=== PATIENT | female | born 1960 | race Caucasian/White ===

== ENCOUNTER 2019-12-16 08:54 | Outpatient (CLI) | payer OTHER, SELFPAY ==
--- NOTE | ~2019-12-16 | US_ITS ---
EXAMINATION: US carotid duplex BI EXAM DATE: 12/16/2019 09:24 INDICATION: Dizziness. TECHNIQUE: Grayscale, color and pulsed Doppler images of the cervical carotid arteries were obtained . The degree of vessel stenosis is placed in one of the following categories: normal, <50% stenosis, 50-69% stenosis, >=70% stenosis but less than near-occlusion, near-occlusion, or occlusion. Note that percent stenosis relative to normal distal artery lumen diameter is indirectly measured from velocit y measurements as described by Roque, et al. Radiology 2003; 229:340-346. There is no prior study fo r comparison. FINDINGS: RIGHT SIDE: Right common carotid artery peak systolic velocity (PSV in cm/s): 87 Right bulb/internal carotid artery peak systolic velocity (PSV in cm/s): 115 Right internal carotid artery end diastolic velocity (EDV in cm/s): 27 Right ICA/CCA peak systolic ratio: 1.3 Right external carotid artery peak systolic velocity (PSV in cm/s): 83 Right vertebral artery antegrade flow: yes There is no focal plaque identified. LEFT SIDE: Left common carotid artery peak systolic velocity (PSV in cm/s): 82 Left bulb/internal carotid artery peak systolic velocity (PSV in cm/s): 68 Left internal carotid artery end diastolic velocity (EDV in cm/s): 32 Left ICA/CCA peak systolic ratio: 0.8 Left external carotid artery peak systolic velocity (PSV in cm/s): 64 Left vertebral artery antegrade flow: yes There is no focal plaque identified. IMPRESSION: 1. Normal right internal carotid artery. 2. Normal left internal carotid artery. > Reviewed, dictated and finalized at location B. H CARRIER
== END 2019-12-16 08:55 | disposition home or self-care (01) ==
LOC: CHSIMG 08:57
PROVIDERS: PCP Family Medicine; Visit Provider Family Medicine
DX: R42 Dizziness and giddiness (principal)
CPT/HCPCS: 93880

== ENCOUNTER 2019-12-16 09:20 | Outpatient (RCR) | payer OTHER, SELFPAY ==
--- NOTE | 2019-12-16 10:24 | PTOPEVAL ---
Thank you for referring this patient to [facility]. Please review, sign, date and return this plan of care KATIA. I agree with and certify that the following plan of care is medically necessary. Referring Physician Date Admitting Provider: Attending Provider: Olivier Vieira MD Referring Provider: *PT Outpatient Evaluation Start: 12/16/19 09:38 Freq: Status: Active Protocol: Document 12/16/19 09:46 DANIELELIZABETH (Rec: 12/16/19 10:17 BARTOLOME [id number]) Therapy Assessment Status Assessment Status Assessment Status Evaluation Evaluation Information Problem Diagnosis vertigo Onset 10/06/18 Subjective Information Pt. reports that she has had Query Text:As Reported By Patient/ sporadic dizziness for almost Family 2 years. She reports when she does have symptoms the top of her head seems light, and recalls a few incidents that she felt the eyes moving back and forth. She recalls monday last week she was driving in the rain and states that she had to pull her vehicle over due to the dizziness. She reports that rolling in bed to the left will also trigger dizziness. Pt. recalls no episodes of cardiac issues. She reports having undergone EKG which was negative. She reports that her goal is to get rid of her dizziness. 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
--- NOTE | 2020-02-03 11:30 | PCPTNOTE ---
Pt. contacted the clinic after her 12/16/19 appointment. She stated that she had no longer has had symptoms and requested discharge. Kostas Machado, MPT
== END 2019-12-16 09:24 | disposition home or self-care (01) ==
LOC: CHSPT 09:20
PROVIDERS: PCP Family Medicine; Visit Provider Family Medicine
DX: R42 Dizziness and giddiness (principal)
CPT/HCPCS: 97112; 97161

== ENCOUNTER 2020-08-03 09:37 | Outpatient (CLI) | payer OTHER, SELFPAY ==
--- NOTE | ~2020-08-03 | MMUS_ITS ---
EXAMINATION: MM screen khoi LT diag khoi RT, US breast RT limited HISTORY: Pain at the 9:00 location of the right breast and bloody nipple discharge. TECHNIQUE: Craniocaudal, mediolateral, and mediolateral oblique 3-D tomosynthesis images of the right breast were performed and synthetic 2-D images were generated. Craniocaudal and mediolateral oblique 3-D tomosynthesis images of the left breast were performed and synthetic 2-D images were generated C AD analysis was submitted and interpreted. High resolution limited right breast ultrasound was perfor med. COMPARISON: 11/10/2015, 12/06/2011 BREAST PARENCHYMAL COMPOSITION: The breasts are heterogeneously dense, which may obscure small masses . FINDINGS: MAMMOGRAPHIC FINDINGS: There is no evidence of suspicious mass, calcification, or architectural distortion in either breast to suggest malignancy. There has been no suspicious interval change. No mammographic correlate is id entified for the reported palpable abnormality of the right breast. ULTRASOUND: There is no evidence of focal abnormal solid or cystic lesion in the vicinity of the patient's right breast pain. No sonographic correlate is identified for nipple discharge. IMPRESSION: 1. No specific mammographic or sonographic correlate is identified for the reported breast pain or ni pple discharge. Further evaluation at this time should be based on clinical assessment. Continued fol low-up physical examination is recommended. 2. Recommend routine screening mammography in one year. BI-RADS Category 1: Negative Reviewed, dictated and finalized at location A. IMPRESSION: 1. No specific mammographic or sonographic correlate is identified for the repo rted breast pain or nipple discharge. Further evaluation at this time should be based on clinical assessment. Continued follow-up physical examination is kimmy mmended. 2. Recommend routine screening mammography in one year. BI-RADS Category 1: Negative
== END 2020-08-03 09:38 | disposition home or self-care (01) ==
PROVIDERS: PCP Family Medicine; Visit Provider Family Medicine
DX: Z12.31 Encounter for screening mammogram for malignant neoplasm of breast (principal); N63.10 Unspecified lump in the right breast, unspecified quadrant
CPT/HCPCS: 76642; 77063; 77065; 77067

== ENCOUNTER 2021-03-09 09:56 | Outpatient (CLI) | payer OTHER, SELFPAY ==
--- NOTE | 2021-04-08 09:29 | WPDHOLTEREM ---
Holter/Event Monitor Holter/Event Monitor Date of procedure: 03/22/21 Procedure Type: event monitor Indications: Palpitations Conclusion: 1. 10 days event monitor between 03/22/21-04/08/21. There are 59 available transmissions for analysis. 2. Predominant rhythm is sinus rhythm. HR range 48-178 bpm; average HR 60 bpm. 3. There are occasional premature supraventricular complexes with total burden of 2%. There are 2 episodes of supraventricular tachycardia, fastest at 178 bpm and longest lasting 17 beats. 4. There are intermittent premature ventricular complexes with total burden of 4%. No ventricular tachycardia. 5. No significant pauses greater than 2 seconds. 6. Patient reports 28 episodes of dizziness, skipped beats and symptoms other than listed which demonstrate sinus rhythm, HR range 62-84 bpm and PVC's in each episode.
== END 2021-03-09 09:57 | disposition home or self-care (01) ==
LOC: CHSCARD 09:58
PROVIDERS: PCP Family Medicine; Visit Provider Family Medicine
DX: R00.2 Palpitations (principal)
CPT/HCPCS: 99199

== ENCOUNTER 2021-07-15 11:26 | Outpatient (CLI) | payer OTHER, SELFPAY ==
--- NOTE | 2021-07-15 11:31 | ECHO_ITS ---
Patient Info Name: Rebecca De Los Santos Age: 60 years : 1960 Gender: Female Ht: 66 in Wt: 146 lbs BSA: 1.76 m2 HR: 71 bpm BP: 92 / 67 mmHg Exam Date: 07/15/2021 11:26 AM Exam Location: [facility] Patient Status: Outpatient Admit Date: 07/15/2021 Staff Ordering Physician: Curt Nogueira DO Boatswain Mate: Vitaly Banks, FABIOLA, RT Attending Provider: Curt Nogueira DO Referring Physician: Jero PRICE; Exam Type: CA echo doppler color flow Study Info Indications R00.2 - Palpitations Complete two-dimensional, color flow and Doppler transthoracic echocardiogram is performed. Strain analysis performed. Summary 1. Complete two-dimensional, color flow and Doppler transthoracic echocardiogram is performed. 2. Left ventricular chamber dimension is normal. 3. Left ventricular systolic function is normal, estimated at 60-65%. 4. The left ventricular diastolic function is normal. 5. E/e' 6 is not elevated. 6. Global longitudinal strain is normal at -18.7%. 7. Right ventricular chamber dimension is mildly enlarged. 8. There is mild tricuspid valve regurgitation. 9. No pulmonary hypertension, estimated pulmonary arterial systolic pressure is 24 mmHg. Left Ventricle E/e' 6 is not elevated. Global longitudinal strain is normal at -18.7%. Left ventricular chamber dimension is normal. Left ventricular systolic function is normal, estimated at 60-65%. The left ventricular diastolic function is normal. Right Ventricle Right ventricular systolic function is normal based on normal TAPSE 1.9 cm. Right ventricular chamber dimension is mildly enlarged. Left Atria Left atrial chamber dimension is normal. Right Atria Right atrial chamber dimension is normal. Aortic Valve The aortic valve is trileaflet. There is no aortic valve stenosis. There is no aortic valve regurgitation. Pulmonic Valve There is no pulmonic regurgitation. Mitral Valve There is no mitral valve stenosis. There is no mitral valve regurgitation. Tricuspid Valve There is mild tricuspid valve regurgitation. No pulmonary hypertension, estimated pulmonary arterial systolic pressure is 24 mmHg. Pericardium/Pleural There is no pericardial effusion. Inferior Vena Cava Normal inferior vena cava with >50% collapse upon inspiration consistent with normal right atrial pressure, 5 mmHg. Aorta The aortic root size at the sinus of Valsalva is normal. Left Ventricular Outflow Tract Name Value Normal LVOT 2D LVOT Diameter 2.0 cm LVOT Doppler LVOT Peak Velocity 100 cm/s LVOT Peak Gradient 4 mmHg LVOT Mean Gradient 2 mmHg LVOT VTI 20 cm LVOT VTI/AV VTI Ratio 1.0 LVOT Stroke Volume 61 ml Mitral Valve Name Value Normal MV Doppler
== END 2021-07-15 11:27 | disposition home or self-care (01) ==
LOC: CHSIMG 11:27
PROVIDERS: PCP Family Medicine; Visit Provider Internal Medicine Cardiovascular Disease
DX: R00.2 Palpitations (principal)
CPT/HCPCS: 93306

== ENCOUNTER 2021-10-18 07:55 | Outpatient (CLI) | payer OTHER, SELFPAY ==
--- NOTE | ~2021-10-18 | MM_ITS ---
EXAMINATION: MM screening [facility] BI w morena HISTORY: Screening mammogram TECHNIQUE: Craniocaudal and mediolateral oblique 3-D tomosynthesis images were obtained and synthetic 2-D images were generated. CAD analysis was submitted and interpreted. COMPARISON: 07/26/2020, 11/10/2015, 12/06/2011 BREAST PARENCHYMAL COMPOSITION: The breasts are heterogeneously dense, which may obscure small masses . FINDINGS: There is no evidence of suspicious mass, calcification, or architectural distortion to sugg est malignancy in either breast. There has been no suspicious interval change. IMPRESSION: 1. No mammographic evidence of malignancy. 2. Recommend routine screening mammography in one year. BI-RADS Category 1: Negative Reviewed, dictated and finalized at location A. NSION AGENT
== END 2021-10-18 07:56 | disposition home or self-care (01) ==
LOC: CHSIMG 07:57
PROVIDERS: PCP Family Medicine; Visit Provider Family Medicine
DX: Z12.31 Encounter for screening mammogram for malignant neoplasm of breast (principal)
CPT/HCPCS: 77063; 77067

== ENCOUNTER 2022-04-19 13:37 | Outpatient (CLI) | payer OTHER, SELFPAY ==
--- NOTE | ~2022-04-19 | DEXA_ITS ---
Bone Density Report Name: MARIELLA ARGUELLES Age: 61 Sex: Female Ethnicity: White Date of : 1960 Indication: postmenopausal; screening for osteoporosis; height loss; Referring Provider: Myke, Mary Staton Study: Bone densitometry was performed. Exam Date: April 19, 2022 Accession number: [id number] Bone Density: Region BMD T-score Z-score Classification AP Spine(L1-L4) 0.793 -2.3 -0.9 Osteopenia Femoral Neck (Left) 0.601 -2.2 -0.9 Osteopenia Total Hip (Left) 0.761 -1.5 -0.5 Osteopenia Femoral Neck (Right) 0.586 -2.4 -1.1 Osteopenia Total Hip (Right) 0.754 -1.5 -0.6 Osteopenia Femoral Neck Mean 0.593 -2.3 -1.0 Osteopenia Total Hip Mean 0.757 -1.5 -0.6 Osteopenia World Health Organization criteria for BMD impression classify patients as: Normal (T-score at or above -1.0), Osteopenia (T-score between -1.0 and -2.5), or Osteoporosis (T-score at or below -2.5). 10-year Fracture Risk(1): Major Osteoporotic Fracture 11% Hip Fracture 1.8% Reported Risk Factors: [place] (), Neck BMD=0.586, BMI=25.0 (1) FRAX(R) Version 3.08. Fracture probability calculated for an untreated patient. Fracture probability may be lower if the patient has received treatment. Clinical Information Provided by Patient: Patient maximum height was 66 Menopause Age: 53 Drinks caffeinated beverages Onset of menses at age 17 Number of children 2 Impression: The patient has low bone mass, based on the Right Femoral Neck T-score. Discussion: BONE DENSITY IS LOW AT ONE OR MORE SKELETAL SITES. This patient's lowest T-score is low at one or more skeletal sites. It meets the World Health Organization's (WHO) criteria for ?low bone mass? (T-score between -1.0 and -2.5). The patient's 10-year risk of fracture as calculated by FRAX is less than the threshold where pharmacological therapy is recommended by the National Osteoporosis Foundation (NOF). However, all treatment decisions require clinical judgment and consideration of individual patient factors, including patient preferences, comorbidities, previous drug use, risk factors not captured in the FRAX model (e.g., frailty, falls, vitamin D deficiency, increased bone turnover, interval significant decline in bone density) and possible under or overestimation of fracture risk by FRAX. The patient should follow a healthful lifestyle (good nutrition with adequate calcium and vitamin D, and appropriate weight-bearing exercise). Follow-Up: Consider repeating this study in 2 to 3 years to reassess this patient's status, or sooner if there is some new clinical indication. Reported by: Dr. Jamari Faye on 04/20/2022 7:38:00 AM. Reviewed, dictated and finalized at location A. [facility]
== END 2022-04-19 13:38 | disposition home or self-care (01) ==
LOC: CHSIMG 13:39
PROVIDERS: PCP Family Medicine; Visit Provider Nurse Practitioner Family
DX: Z82.62 Family history of osteoporosis (principal); Z78.0 Asymptomatic menopausal state
CPT/HCPCS: 77080

== ENCOUNTER 2022-10-20 10:11 | Outpatient (CLI) | payer OTHER, SELFPAY ==
--- NOTE | ~2022-10-20 | MM_ITS ---
EXAMINATION: MM screening khoi BI w morena HISTORY: Screening TECHNIQUE: Craniocaudal and mediolateral oblique 3-D tomosynthesis images were obtained and synthetic 2-D images were generated. CAD analysis was submitted and interpreted. COMPARISON: Comparison to multiple prior studies sequentially, with oldest reviewed study dated 03/2016. BREAST PARENCHYMAL COMPOSITION: The breasts are heterogeneously dense, which may obscure small masses FINDINGS: There is no evidence of suspicious mass, calcification, or architectural distortion to sugg est malignancy in either breast. There has been no suspicious interval change. IMPRESSION: 1. No mammographic evidence of malignancy. 2. Recommend routine screening mammography in one year. BI-RADS Category 1: Negative Reviewed, dictated and finalized at location B. UNTS PAYABLE PROFESSIONAL
== END 2022-10-20 10:12 | disposition home or self-care (01) ==
LOC: CHSIMG 10:12
PROVIDERS: PCP Family Medicine; Visit Provider Family Medicine
DX: Z12.31 Encounter for screening mammogram for malignant neoplasm of breast (principal)
CPT/HCPCS: 77063; 77067

== ENCOUNTER 2023-11-28 14:33 | Outpatient (CLI) | payer OTHER, SELFPAY ==
--- NOTE | ~2023-11-28 | MM_ITS ---
EXAMINATION: MM screening [facility] BI w morena HISTORY: Screening mammogram TECHNIQUE: Craniocaudal and mediolateral oblique 3-D tomosynthesis images were obtained and synthetic 2-D images were generated. CAD analysis was submitted and interpreted. COMPARISON: 10/20/2022, 10/18/2021, 08/03/2020, 11/10/2015 BREAST PARENCHYMAL COMPOSITION: The breasts are heterogeneously dense, which may obscure small masses . FINDINGS: No suspicious mass, calcification, or architectural distortion are identified in either greg ast to suggest malignancy. There has been no suspicious interval change. IMPRESSION: 1. No mammographic evidence of malignancy. 2. Recommend routine screening mammography in one year. BI-RADS Category 1: Negative Reviewed, dictated and finalized at location A. OTIONS ASSISTANT
== END 2023-11-28 14:34 | disposition home or self-care (01) ==
LOC: CHSIMG 14:35
PROVIDERS: PCP Family Medicine; Visit Provider Family Medicine
DX: Z12.31 Encounter for screening mammogram for malignant neoplasm of breast (principal)
CPT/HCPCS: 77063; 77067

== ENCOUNTER 2024-12-24 13:03 | Outpatient (CLI) | payer OTHER, SELFPAY ==
--- NOTE | ~2024-12-24 | MM_ITS ---
EXAMINATION: MM screening khoi BI w morena HISTORY: Screening TECHNIQUE: Craniocaudal and mediolateral oblique 3-D tomosynthesis images were obtained and synthetic 2-D images were generated. CAD analysis was submitted and interpreted. COMPARISON: Comparison to multiple prior studies sequentially, with oldest reviewed study dated 03/2016. BREAST PARENCHYMAL COMPOSITION: Dense: The breasts are heterogeneously dense, which may obscure small masses FINDINGS: There is no evidence of suspicious mass, calcification, or architectural distortion to sugg est malignancy in either breast. There has been no suspicious interval change. IMPRESSION: 1. No mammographic evidence of malignancy. 2. Recommend routine screening mammography in one year. BI-RADS Category 1: Negative Reviewed, dictated and finalized at location B. D HAND
--- OUTSIDE RECORDS SUMMARY | 2024-12-24 13:08 | XMS_ITS | Clinical Summary ---
Author Organization [facility] [place] [address] Address [address] [place] [address] Phone Care Team Providers Care Senior Advisory Name Role Phone Olivier Vieira MD Primary Care Provide r Allergies No known active allergies Medications No known medications Active Problems No known active problems Surgical History Surgery Date Site/Laterality Comments OOPHORECTOMY 11/06/2004 - 11/05/2005 Ex lap, left oophorectomy - dermoid cyst Medical History Medical History Date Comments Abnormal Pap smear of cervix 2004 [facility] US, HPV+ - negative biopsy Family History Medical History Relation Name Comments Prostate cancer Brother Heart failure Father CHF Parkinsonism Mother Colon cancer Paternal Grandfather onset 8 0s Relation Name Status Comments Brother Father Mother Paternal Grandfather Social History Tobacco Use Types Packs/Day Years Used Date Smoking Tobacco: Never Smokeless Tobacco: Never Personal Safety Answer Date Recorded Getting School Help Needed Not on file 01/19 Comments No Sex and Gender Information Value Date Recorded Sex Assigned at Not on file 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 Gender Identity Not on file Sexual Orientation Not on file Occupation Industry Job Start Date Job End Date [employer] Not on file Not on file Not on file Obstetrics History Para Term AB IAB SAB Ectopic Multiple Livin g Live Births 2 2 2 0 0 2 Date Outcome GA Total Labor Labor/2nd/3rd Weight Sex Type Anes PTL Chasity A1 A5 Name Clin Term Term Last Filed Vital Signs Vital Sign Reading Time Taken Comments Blood Pressure 122/80 01/16/2019 9:54 AM CDT Pulse - - Temperature - - Respiratory Rate - - Oxygen Saturation - - Inhaled Oxygen Concentration - - Weight 64.4 kg (142 lb) 01/16/2019 9:54 AM CDT Height 166.4 cm (5' 5.5 ) 01/16/2019 9:54 AM CDT Body Mass Index 23.27 01/16/2019 9:54 AM CDT Plan of Treatment Not on file Insurance [employer] Care Teams Senior Advisory Relationship Specialty Start Date End Date Olivier Vieira MD [address] [place] [address] PCP - General Family Medicine 01/16/19
--- OUTSIDE RECORDS SUMMARY | 2024-12-24 13:08 | XMS_ITS | Referral Summary ---
Author Organization [facility] [place] [address] Address [address] [place] [address] Phone Care Team Providers Care Meter Reading Clerk Name Role Phone Olivier Vieira MD Primary Care Provide r Allergies No known active allergies Medications No known medications Active Problems No known active problems Social History Tobacco Use Types Packs/Day Years Used Date Smoking Tobacco: Never Smokeless Tobacco: Never Personal Safety Answer Date Recorded Getting School Help Needed Not on file 01/19 Comments No Sex and Gender Information Value Date Recorded Sex Assigned at Not on file 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
== END 2024-12-24 13:04 | disposition home or self-care (01) ==
LOC: CHSIMG 13:05
PROVIDERS: PCP Family Medicine; Visit Provider Family Medicine
DX: Z12.31 Encounter for screening mammogram for malignant neoplasm of breast (principal)
CPT/HCPCS: 77063; 77067